=== PATIENT | female | born 1970 | race Caucasian/White ===

== ENCOUNTER → 2025-09-08 | Outpatient (CLI) | payer MEDICARE, SELFPAY | END | disposition home or self-care (01) | LOC: OPMRI 13:37 | PROVIDERS: PCP Family Medicine | DX: G35.D Multiple sclerosis, unspecified (principal); Z51.81 Encounter for therapeutic drug level monitoring ==

== ENCOUNTER → 2025-10-22 | Outpatient (CLI) | payer MEDICARE, SELFPAY ==
--- NOTE | 2025-10-22 14:57 | MRI_ITS ---
PROCEDURE: BRAIN W/WO CONTRAST 10/22/2025 REASON FOR EXAM: MULTIPLE SCLEROSIS, MEDICATION MONITOR TECHNIQUE: Procedure Code: [id number] Modality: MR Procedure: BRAIN W/WO CONTRAST Multiplanar and multisequence images were obtained. CONTRAST: [place] VOLUME: 20 mL COMPARISON: MRI brain 12/13/2023 FINDINGS: Redemonstration of numerous supratentorial and infratentorial T2/FLAIR white matter hyperintense lesions. The distribution is predominantly periventricular and subcortical. There is involvement of the callososeptal interface. No definite evidence of new lesions given differences in acquisition technique. There is no enhancing intracranial lesion. No acute infarct or hemorrhage. No extra-axial fluid collection. No significant mass effect or herniation of the brain.The ventricular system and sulci/fissures are within expected limits of size and configuration for the patient's stated age. The basal cisterns are patent. The intracranial large vessel arterial flow voids are maintained. The mastoid air cells clear. The paranasal sinuses are predominately clear. Left lamina papyracea dehiscence versus chronic fracture. The orbits are unremarkable. The calvarial bone marrow signal is within normal limits. MRI/Brain W/WO Contrast IMPRESSION: Redemonstration of numerous supratentorial and infratentorial white matter lesi ons consistent with known clinical history of demyelinating disease. No definite new lesions. No active lesions. Reading Location: [id number]
== END | disposition home or self-care (01) ==
PROVIDERS: PCP Family Medicine
DX: G35.D Multiple sclerosis, unspecified (principal); Z51.81 Encounter for therapeutic drug level monitoring
CPT/HCPCS: 70553; A9575